=== PATIENT | female | born 1995 | race Two or more races ===

== ENCOUNTER 2016-11-04 23:17 | Emergency (ER) | payer OTHER ==
[2016-11-04 23:43] LABS: BILIRUBIN,URINE NEGATIVE (NEGATIVE); PH,URINE 7.5 PH (5.0-7.5)
[2016-11-04 23:51] LABS: HCG UR QUAL NEGATIVE; UA w/ MICROSCOPIC CHARGE YES
[2016-11-04 23:58] LABS: UR CULTURE IF IND NOT INDICATED; WBC,URINE 0-3 /HPF (0-5)
--- NOTE | 2016-11-05 00:40 | ED Physician Documentation ---
History of Present Illness - Stated complaint Stated Complaint: RAPID HB/HEADACHE - Chief complaint Chief Complaint: General - History obtained from History obtained from: Patient - History of Present Illness Timing: How many years ago (1) - Additonal information Additional information: 20 y/o female has had symptoms of fatigue, palpitations and "not feeling well". Her symptoms are vague but have been bothering her and today she has headache as well. She describes the palpations as a hard thump in her chest. She denies shortness of breath or diaphoresis. She has not had a rapid heart rate. She feels she hydrates well and she generally avoids caffeine, alcohol and tobacco. Review of Systems Constitutional: reports: Fatigue. denies: Fever, Chills Eyes: denies: Decreased vision Ears: denies: Loss of hearing, Ear pain Nose: denies: Rhinorrhea / runny nose, Congestion Throat: denies: Sore throat Cardiac: reports: Palpitations. denies: Chest pain / pressure Respiratory: denies: Dyspnea, Cough GI: denies: Abdominal Pain, Nausea, Vomiting : denies: Dysuria, Frequency Skin: denies: Rash, Lesions Musculoskeletal: denies: Neck pain, Back pain Neurologic: reports: Headache. denies: Generalized weakness, Focal weakness, Numbness, Difficulty speaking, Syncope, Seizure, Confused, Altered mental status , Head injury, LOC Psychiatric: denies: Insomnia PD PAST MEDICAL HISTORY - Past Medical History Past Medical History: Yes Respiratory: Asthma - Past Surgical History Past Surgical History: No - Present Medications Home Medications: Ambulatory Orders Medication Instructions Recorded Confirmed Albuterol [Ventolin Hfa] 1 puffs INH Q4H 11/10/14 11/04/16 Fluticasone/Salmeterol [Advair 1 puffs INH DAILY 09/10/15 11/04/16 100-50 Diskus] - Allergies Allergies/Adverse Reactions: Allergies Allergy/AdvReac Type Severity Reaction Status Date / Time amoxicillin [Amoxicillin] Allergy Intermediate Rash Verified 09/10/15 13:09 - Social History Does the pt smoke?: No Smoking Status: Never smoker Does the pt drink ETOH?: No Does the pt have substance abuse?: No - Immunizations Immunizations are current?: Yes PD ED PE NORMAL - Vitals Vital signs reviewed: Yes (diastolic hypertension ) - General General: Alert and oriented X 3, No acute distress, Well developed/nourished - HEENT HEENT: Atraumatic, PERRL, EOMI, Ears normal, Other (dry mucous membranes ) - Neck Neck: Supple, no meningeal sign, No bony TTP - Cardiac Cardiac: RRR, No murmur - Respiratory Respiratory: No respiratory distress, Clear bilaterally - Abdomen Abdomen: Soft, Non tender - Back Back: No CVA TTP, No spinal TTP - Derm Derm: Normal color, Warm and dry, No rash - Extremities Extremities: No deformity, No edema - Neuro Neuro: Alert and oriented X 3, 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, No motor deficit, No sensory deficit, Normal speech - Psych Psych: Normal mood, Other (affect is flat) Results - Vitals Vitals: Vital Signs - 24 hr 11/04/16 11/05/16 23:24 00:16 Temperature 36.4 C L Heart Rate 70 81 Respiratory 20 15 Rate Blood Pressure 109/85 H 95/55 L O2 Saturation 100 99 Oxygen O2 Source Room air - EKG (time done) 0100 Rate: Rate (enter#) (65) Rhythm: NSR QRS: Low voltage Compare to prior EKG: Old EKG unavailable Computer interpretation: Agree with computer - Labs Labs: Laboratory Tests 11/04/16 11/04/16 11/05/16 23:30 23:30 00:40 WBC 8.5 RBC 4.61 Hgb 13.6 Hct 40.6 MCV 88.0 MCH 29.5 MCHC 33.6 RDW 13.3 Plt Count 308 MPV 8.9 Neut # 4.7 Lymph # 2.9 [place] # 0.6 Eos # 0.2 Baso # 0.1 Absolute Nucleated RBC 0.00 Nucleated RBCs 0.0 Sodium Potassium Chloride Carbon Dioxide Anion Gap BUN Creatinine Estimated GFR (MDRD) Glucose Calcium Total Bilirubin AST ALT Alkaline Phosphatase Troponin I Total Protein Albumin Globulin Albumin/Globulin Ratio Lipase TSH Urine Color YELLOW Urine Clarity CLEAR Urine pH 7.5 Ur Specific [place] 1.015 1.015 Urine Protein NEGATIVE Urine Glucose (UA) NEGATIVE Urine Ketones NEGATIVE Urine Occult Blood SMALL H Urine Nitrite NEGATIVE Urine Bilirubin NEGATIVE Urine Urobilinogen 0.2 (NORMAL) Ur Leukocyte Esterase NEGATIVE Urine RBC None Seen Urine WBC 0-3 Ur Squamous Epith Cells MOD Squamous H Urine Bacteria None Seen Ur Microscopic Review INDICATED Urine Culture Comments NOT INDICATED Urine HCG, Qual NEGATIVE 11/05/16 11/05/1611/05/17 00:40 00:40 00:40 WBC RBC Hgb Hct MCV MCH MCHC RDW Plt Count MPV Neut # Lymph # [place] # Eos # Baso # Absolute Nucleated RBC Nucleated RBCs Sodium 141 Potassium 4.0 Chloride 105 Carbon Dioxide 29 Anion Gap 7.0 BUN 14 Creatinine 0.9 Estimated GFR (MDRD) 78 L Glucose 132 H Calcium 9.4 Total Bilirubin < 0.2 L AST 17 ALT 12 Alkaline Phosphatase 62 Troponin I < 0.04 Total Protein 7.1 Albumin 4.2 Globulin 2.9 Albumin/Globulin Ratio 1.4 Lipase 24 TSH 2.99 Urine Color Urine Clarity Urine pH Ur Specific [place] Urine Protein Urine Glucose (UA) Urine Ketones Urine Occult Blood Urine Nitrite Urine Bilirubin Urine Urobilinogen Ur Leukocyte Esterase Urine RBC Urine WBC Ur Squamous Epith Cells Urine Bacteria Ur Microscopic Review Urine Culture Comments Urine HCG, Qual Procedures - IVC sono (time) 0030 Bedside IVC sono: IVC measures (cm) (1.93), IVC collapsed c insp (cm) (1.34), Collapsibility index (0.31), Euvolemia PD MEDICAL DECISION MAKING - ED course Complexity details: reviewed old records, reviewed results, re-evaluated patient , considered differential, d/w patient, d/w family ED course: 20y/o female with symptomatic palpitations is placed on the monitor and she appears to be having PAC's. She appears to have symptoms with the compensatory beat. 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 She has a single semester left and no plans as yet. We discussed this as a source of unrecognized stress. She does have tension headache as well and she is given PO tramadol. I have recommended she follow up with her primary to have further work up done to rule out structural heart disease. Departure - Departure Disposition: 01 Home, Self Care Clinical Impression: Premature atrial contractions Condition: Stable Instructions: ED Palpitations, ED Stress React Follow-Up: Mykel Painting MD [Provider Admit Priv/Credential] - Comments: Today it appears you have symptomatic premature atrial contractions. Further work up is indicated with 24 hour monitoring and an echocardiogram. Follow up with Dr. Painting to schedule these.
[2016-11-05 00:52] LABS: BASOPHILS # (AUTO) 0.1 10^3/uL (0.0-0.1); EOSINOPHILS # (AUTO) 0.2 10^3/uL (0.0-0.7); EOSINOPHILS % (AUTO) 2.5 %; HCT - HEMATOCRIT 40.6 % (37.0-47.0); HGB - HEMOGLOBIN 13.6 g/dL (12.0-16.0); LYMPHOCYTES # (AUTO) 2.9 10^3/uL (1.5-3.5); LYMPHOCYTES % (AUTO) 34.4 %; MEAN CORPUSCULAR HEMOGLOBIN 29.5 pg (27.0-31.0); MEAN CORPUSCULAR HGB CONC 33.6 g/dL (32.0-36.0); MEAN PLATELET VOLUME 8.9 fL (7.9-10.8); MONOCYTES # (AUTO) 0.6 10^3/uL (0.0-1.0); MONOCYTES % (AUTO) 7.1 %; NEUTROPHILS # (AUTO) 4.7 10^3/uL (1.5-6.6); RED BLOOD COUNT 4.61 10^6/uL (4.20-5.40); RED CELL DISTRIBUTION WIDTH 13.3 % (12.0-15.0); UNCORRECTED WHITE BLOOD COUNT 8.5 x10^3/uL; WHITE BLOOD COUNT 8.5 x10^3/uL (4.8-10.8)
[2016-11-05 01:05] LABS: ALBUMIN/GLOBULIN RATIO 1.4 (1.0-2.2); BILIRUBIN,TOTAL < 0.2 mg/dL (0.2-1.0); BUN - BLOOD UREA NITROGEN 14 mg/dL (6-20); CALCIUM 9.4 mg/dL (8.5-10.3); CARBON DIOXIDE - CO2 29 mmol/L (21-32); CHLORIDE 105 mmol/L (101-111); CREATININE 0.9 mg/dL (0.4-1.0); GFR - MDRD 78 (>89); GLUCOSE 132 mg/dL (70-100); LIPASE 24 U/L (22-51); SODIUM 141 mmol/L (135-145); TOTAL PROTEIN 7.1 g/dL (6.7-8.2)
[2016-11-05] MEDS ORDERED: traMADol 50 MG TABLET PO STA (01:51)
[2016-11-05] MEDS ORDERED: traMADol 50 MG TABLET PO ONE (01:54)
[2016-11-05 01:58] VITALS: BP 102/59
== END 2016-11-05 02:05 | disposition home or self-care (01) ==
LOC: ED 23:17
DX: I49.1 Atrial premature depolarization (principal); J45.909 Unspecified asthma, uncomplicated
CPT/HCPCS: 36415; 80053; 81001; 81025; 83690; 84443; 84484; 85025; 93005; 93010; 99283; 99285; A9270; 81003; 87086

== ENCOUNTER 2016-11-06 15:00 | Emergency (ER) | payer OTHER | END 2016-11-06 15:53 | disposition home or self-care (01) | DX: I49.1 Atrial premature depolarization (principal); I73.00 Raynaud's syndrome without gangrene; J45.909 Unspecified asthma, uncomplicated; F41.9 Anxiety disorder, unspecified ==

== ENCOUNTER 2016-12-07 11:26 | Emergency (ER) | payer OTHER ==
[2016-12-07 11:59] LABS: BASOPHILS % (AUTO) 0.5 %; EOSINOPHILS # (AUTO) 0.4 10^3/uL (0.0-0.7); EOSINOPHILS % (AUTO) 6.1 %; HCT - HEMATOCRIT 42.1 % (37.0-47.0); HGB - HEMOGLOBIN 14.2 g/dL (12.0-16.0); LYMPHOCYTES % (AUTO) 31.8 %; MEAN CORPUSCULAR HEMOGLOBIN 29.2 pg (27.0-31.0); MEAN CORPUSCULAR HGB CONC 33.6 g/dL (32.0-36.0); MEAN CORPUSCULAR VOLUME 86.8 fL (81.0-99.0); MEAN PLATELET VOLUME 7.7 fL (7.9-10.8); MONOCYTES # (AUTO) 0.5 10^3/uL (0.0-1.0); MONOCYTES % (AUTO) 8.3 %; NEUTROPHILS # (AUTO) 3.3 10^3/uL (1.5-6.6); NEUTROPHILS % (AUTO) 53.3 %; RED BLOOD COUNT 4.85 10^6/uL (4.20-5.40); UNCORRECTED WHITE BLOOD COUNT 6.2 x10^3/uL; WHITE BLOOD COUNT 6.2 x10^3/uL (4.8-10.8)
[2016-12-07] MEDS: SODIUM CHLORIDE 0.9% 1,000 ML IV ONE (12:19)
[2016-12-07 12:22] LABS: ALBUMIN/GLOBULIN RATIO 0.9 (1.0-2.2); BILIRUBIN,TOTAL 0.4 mg/dL (0.2-1.0); BUN - BLOOD UREA NITROGEN 11 mg/dL (6-20); CALCIUM 9.2 mg/dL (8.5-10.3); CARBON DIOXIDE - CO2 28 mmol/L (21-32); CHLORIDE 101 mmol/L (101-111); CREATININE 0.8 mg/dL (0.4-1.0); GFR - MDRD 90 (>89); GLUCOSE 95 mg/dL (70-100); LIPASE 20 U/L (22-51); POTASSIUM 3.9 mmol/L (3.5-5.0); SODIUM 137 mmol/L (135-145); TOTAL PROTEIN 7.5 g/dL (6.7-8.2)
[2016-12-07 12:26] LABS: BILIRUBIN,URINE NEGATIVE (NEGATIVE)
[2016-12-07 12:27] LABS: UA w/ MICROSCOPIC CHARGE YES
[2016-12-07 12:37] LABS: UR CULTURE IF IND INDICATED; WBC,URINE 0-3 /HPF (0-5)
[2016-12-07] MEDS ORDERED: KETOROLAC 30 MG/ML VIAL ONE (13:06)
[2016-12-07] MEDS ORDERED: LIDOCAINE PATCH 5% TOP ONE (13:07)
[2016-12-07] MEDS: KETOROLAC 60 MG/2 ML VIAL IVP STA (13:10)
[2016-12-07] MEDS: LIDOCAINE PATCH 5% TOP STA (13:10)
[2016-12-07] MEDS: FLUTICASONE NASAL SPRAY NAS STA (13:19)
--- NOTE | 2016-12-07 13:29 | XRAY Preliminary Report ---
Exam: XR Chest 2 View PA/LAT IMPRESSION: Subtle irregular opacities in left base may be seen in the setting of atelectasis, aspira tion or infectious process. [facility] SITE ID: [id number]
--- NOTE | 2016-12-07 13:32 | XRAY Report ---
EXAM: CHEST RADIOGRAPHY EXAM DATE: 12/07/2016 01:24 PM. CLINICAL HISTORY: Cough. COMPARISON: None. TECHNIQUE: 2 views. FINDINGS: Lungs/Pleura: Subtle irregular opacities in left lung base. No pleural effusion or pneumothorax. Mediastinum: Heart and mediastinal contours are unremarkable. Other: None. IMPRESSION: Subtle irregular opacities in left base may be seen in the setting of atelectasis, aspira tion or infectious process. [facility] Referring Provider Line: [phone] SITE ID: [id number]
--- NOTE | 2016-12-07 14:34 | Ultrasound Report ---
PELVIC ULTRASOUND: 12/07/2016 CLINICAL INDICATION: Irregular heavy bleeding. TECHNIQUE: As requested, only transabdominal imaging was performed. Real-time scanning was performed with independent sales representative static images obtained with Doppler. FINDINGS: The uterus is anteverted, measuring 6.9 x 3.6 x 2.6 cm. The endometrial echo complex measures 6 mm. No focal myometrial lesion is appreciated. The right ovary measures 2.8 x 2.8 x 1.9 cm, and demonstrates follicles, measuring up to 1.3 cm. Normal ovarian flow is seen. The left ovary measures 2.8 x 1.8 x 1.7 cm, and appears unremarkable. Trace free fluid is present. IMPRESSION: NORMAL PELVIC ULTRASOUND. JOB #: [id number] EXT JOB #: [id number] CAMILO
--- NOTE | 2016-12-07 14:48 | ED Physician Documentation ---
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 with approx 1 week of illness she had dlu lik sx of body aches and fever to 102, now a productive cough and PND, also severe posterior neck pain radiating to the head, was on the right side and severe but after chiropractor it moved to the left side, nuch rigidity head and neck hurt more with the cough and then also her LMP was a week ago and nl on time nl in duration and flow, but now with have vag bleeding and passing clots when she cough recent travel to [place], no smoking or OCP or leg swelling saw chropractor today and he advised pt and family that pt was anemic and should come in for blood work Review of Systems Constitutional: reports: Fever, Chills, Myalgias Nose: reports: Congestion Respiratory: reports: Cough GI: denies: Abdominal Pain : reports: LMP (1 wk ago), Vaginal bleeding Endocrine: denies: Easy bruising / bleeding Immunocompromised: denies: Immunocompromised PD PAST MEDICAL HISTORY - Past Medical History Respiratory: Asthma - Past Surgical History Past Surgical History: No - Present Medications Home Medications: Ambulatory Orders Medication Instructions Recorded Confirmed Cyclobenzaprine [Flexeril] 1 tab PO .FREQ 12/07/16 12/07/16 Hydrocodone/Acetaminophen [Vicodin 1 tab PO .FREQ 12/07/16 12/07/16 5-300 mg Tablet] LORazepam [Ativan] 1 tab PO .FREQ 12/07/16 12/07/16 - Allergies Allergies/Adverse Reactions: Allergies Allergy/AdvReac Type Severity Reaction Status Date / Time amoxicillin [Amoxicillin] Allergy Intermediate Rash Verified 12/07/16 11:32 - Social History Does the pt smoke?: No Smoking Status: Never smoker Does the pt drink ETOH?: No Does the pt have substance abuse?: No - Immunizations Immunizations are current?: Yes - POLST Patient has POLST: No PD ED PE NORMAL - Vitals Vital signs reviewed: Yes - General General: Alert and oriented X 3 - HEENT HEENT: PERRL - Neck Neck: Supple, no meningeal sign, Other (left side soft tissue TTP and limited ROM, most tender near skull attachment) - Cardiac Cardiac: RRR - Respiratory Respiratory: Other (rales base L lung) - Abdomen Abdomen: Soft, Non tender - Derm Derm: Normal color - Extremities Extremities: No deformity, No edema - Neuro Neuro: Alert and oriented X 3, tripe washer 2-12 intact, No motor deficit, No sensory deficit, Normal speech Results - Vitals Vitals: Vital Signs - 24 hr 12/07/16 12/07/16 11:30 14:33 Temperature 36.6 C Heart Rate 96 86 Respiratory 18 17 Rate Blood Pressure 116/81 H 102/67 O2 Saturation 100 99 Oxygen O2 Source Room air - Labs Labs: Laboratory Tests 12/07/16 12/07/16 12/07/16 11:48 11:48 11:48 WBC 6.2 RBC 4.85 Hgb 14.2 Hct 42.1 MCV 86.8 MCH 29.2 MCHC 33.6 RDW 13.0 Plt Count 351 MPV 7.7 L Neut # 3.3 Lymph # 2.0 [place] # 0.5 Eos # 0.4 Baso # 0.0 Absolute Nucleated RBC 0.00 Nucleated RBCs 0.0 Sodium 137 Potassium 3.9 Chloride 101 Carbon Dioxide 28 Anion Gap 8.0 BUN 11 Creatinine 0.8 Estimated GFR (MDRD) 90 Glucose 95 Calcium 9.2 Total Bilirubin 0.4 AST 18 ALT 16 Alkaline Phosphatase 61 Total Protein 7.5 Albumin 3.5 Globulin 4.0 Albumin/Globulin Ratio 0.9 L Lipase 20 L Serum HCG, Qual NEGATIVE Urine Color Urine Clarity Urine pH Ur Specific [place] Urine Protein Urine Glucose (UA) Urine Ketones Urine Occult Blood Urine Nitrite Urine Bilirubin Urine Urobilinogen Ur Leukocyte Esterase Urine RBC Urine WBC Ur Squamous Epith Cells Urine Bacteria Ur Microscopic Review Urine Culture Comments Blood Type O POSITIVE Antibody Screen NEGATIVE 12/07/16 11:52 WBC RBC Hgb Hct MCV MCH MCHC RDW Plt Count MPV Neut # Lymph # [place] # Eos # Baso # Absolute Nucleated RBC Nucleated RBCs Sodium Potassium Chloride Carbon Dioxide Anion Gap BUN Creatinine Estimated GFR (MDRD) Glucose Calcium Total Bilirubin AST ALT Alkaline Phosphatase Total Protein Albumin Globulin Albumin/Globulin Ratio Lipase Serum HCG, Qual Urine Color YELLOW Urine Clarity CLEAR Urine pH 6.0 Ur Specific [place] 1.015 Urine Protein NEGATIVE Urine Glucose (UA) NEGATIVE Urine Ketones NEGATIVE Urine Occult Blood LARGE H Urine Nitrite NEGATIVE Urine Bilirubin NEGATIVE Urine Urobilinogen 0.2 (NORMAL) Ur Leukocyte Esterase NEGATIVE Urine RBC 6-10 H Urine WBC 0-3 Ur Squamous Epith Cells FEW Squamous Urine Bacteria Moderate H Ur Microscopic Review INDICATED Urine Culture Comments INDICATED Blood Type Antibody Screen - Rads (name of study) CXR Radiology: See rad report (subtle irreg opacities L base could be infectious) pelvic sono Radiology: See rad report (nl endometrium) PD MEDICAL DECISION MAKING - ED course ED course: PERC neg pna on CXR will tx with zmax neck pain seems muscular - no trauma, vascualr process such as dissection would not change sides - do not feel imaging will help nl pelvic sono and exam and not anemic and neg HCG - reassure and dc fup GUN f not better Departure - Departure Disposition: 01 Home, Self Care Clinical Impression: Dysfunctional uterine bleeding, Neck pain Pneumonia Qualifiers: Pneumonia type: due to unspecified organism Laterality: left Lung location: lower lobe of lung Qualified Code(s): J18.1 - Lobar pneumonia, unspecified organism Comments: servers down - see handwritten dc instructions, rx zmax prednsione, flonase, flexeril, rec fup PMD and BONUS CLERK as neeed
[2016-12-07 15:34] VITALS: BP 109/69
== END 2016-12-07 15:53 | disposition home or self-care (01) ==
LOC: ED 11:26
DX: J18.9 Pneumonia, unspecified organism (principal); N93.8 Other specified abnormal uterine and vaginal bleeding; J45.909 Unspecified asthma, uncomplicated
CPT/HCPCS: 36415; 71020; 76856; 80053; 81001; 81003; 83690; 84703; 85025; 86850; 86900; 86901; 87086; 87491; 87591; 93975; 96361; 96374; 99284